=== PATIENT | female | born 1970 | race Two or more races ===

== ENCOUNTER 2024-06-25 08:00 | Outpatient (RCR) | payer MEDICAID, SELFPAY ==
--- NOTE | 2024-06-03 12:09 | PT.ODAYNRPT ---
PT Outpatient Daily Note OP Daily Note Outpatient Physical Therapy Treatment Date: 06/03/24 Visit Reasons: low back pain Subjective: Same as evaluation Objective: See F/S for therex MT: FELISHA L/S x5' with flexbar Assessment: Low/moderate tissue irritability with prone extension Plan: Continue per POC Length of Time (minutes) of Treatment: 30 Minutes Procedure Charges Therapeutic Exercise 30 minutes: Yes
--- NOTE | 2024-06-11 08:39 | PT.ODAYNRPT ---
PT Outpatient Daily Note OP Daily Note Outpatient Physical Therapy Treatment Date: 06/11/24 Visit Reasons: low back pain Subjective: A little less LBP since last visit Objective: See F/S for therex MT: FELISHA L/S x5' with flexbar Assessment: Low/moderate tissue irritability with prone extension Plan: Continue per POC Length of Time (minutes) of Treatment: 30 Minutes Procedure Charges Therapeutic Exercise 30 minutes: Yes
--- NOTE | 2024-06-17 15:06 | PT.ODAYNRPT ---
PT Outpatient Daily Note OP Daily Note Outpatient Physical Therapy Treatment Date: 06/17/24 Visit Reasons: low back pain Subjective: Less LBP since last visit Objective: See F/S for therex MT: STM L/S x5' with flexbar Mechanical traction L/S x7' at 40 lbs Assessment: Low/moderate tissue irritability with prone extension Plan: Continue per POC Length of Time (minutes) of Treatment: 30 Minutes Procedure Charges Therapeutic Exercise 30 minutes: Yes
--- NOTE | 2024-06-25 08:26 | PT.ODAYNRPT ---
PT Outpatient Daily Note OP Daily Note Outpatient Physical Therapy Treatment Date: 06/25/24 Visit Reasons: low back pain Subjective: Pt reports noticing progress with low back symptoms. Objective: Please see flow sheet for ther ex list. Assessment: Applied mechanical traction to l/s, pt reports decrease in LBP post traction. Plan: Continue with pOC. Length of Time (minutes) of Treatment: 30 Minutes Procedure Charges Therapeutic Exercise 30 minutes: Yes
== END 2024-06-29 23:59 | disposition home or self-care (01) ==
LOC: CPTX 08:00
PROVIDERS: PCP Family Medicine; Referring Provider Family Medicine; Visit Provider Family Medicine
DX: M51.370 Other intervertebral disc degeneration, lumbosacral region with discogenic back pain only (principal)
CPT/HCPCS: 97110

== ENCOUNTER 2024-07-24 13:21 | Emergency (ER) | payer MEDICAID, SELFPAY ==
[2024-07-24 13:37] VITALS: BP 149/84; PULSE 102; RESP 18; TEMP 37; O2SAT 97
--- NOTE | 2024-07-24 13:58 | EDNOTE_ITS ---
<Statement entered by Lisette Syed MD - 07/31/24 17:54> As co-signing physician, I was present and available for consult prn. I concur with the plan and care as documented by the midlevel provider. ED Back Injury Pain RME/HPI General Chief Complaint: Back Pain/Injury Stated Complaint: BACK PAIN Time Seen by Provider: 07/24/24 13:22 Arrival date/time: 07/24/24 13:21 53-year-old female presents emergency department complaints of acute on chronic back pain ongoing for months patient reports that MRI done in [place] 2 months ago. There are no other associated symptoms or aggravating factors no other modifying factors, patient denies taking medication before coming to ER today Limitations: no limitations Related Data Previous Rx's ?Medication ?Instructions ?Recorded hydrocodone 5 mg-acetaminophen 325 1 tab PO BID PRN pain #10 tabs 07/24/24 mg tablet Allergies Allergy/AdvReac Type Severity Reaction Status Date / Time No Known Allergies Allergy Verified 04/24/24 10:40 Review of Systems Review of Systems Systems Reviewed: All systems reviewed, normal except as documented Constitutional Constitutional: Reports system reviewed and no additional complaints, except as documented, Denies fever(s) and Denies headache(s) Eyes Eyes: Reports system reviewed and no additional complaints, except as documented and Denies blurry vision ENT Ears, Nose, Mouth, and Throat: Reports system reviewed and no additional complaints, except as documented, Denies headache(s), Denies nasal congestion, Denies nasal discharge and Denies neck pain Cardiovascular Cardiovascular: Reports system reviewed and no additional complaints, except as documented, Denies chest pain and Denies dyspnea Respiratory Respiratory: Reports system reviewed and no additional complaints, except as documented, Denies chest congestion, Denies cough and Denies dyspnea Gastrointestinal Gastrointestinal: Reports system reviewed and no additional complaints, except as documented and Denies abdominal pain Musculoskeletal Musculoskeletal: Reports system reviewed and no additional complaints, except as documented, Reports back pain, Denies neck pain, Denies numbness, Reports stiffness and Denies tingling Integumentary/Breasts Skin/Breast: Reports system reviewed and no additional complaints, except as documented and Denies rash Neurologic Neurologic: Reports system reviewed and no additional complaints, except as documented, Reports as per HPI, Denies headache(s), Denies numbness and Denies tingling Past Medical History Past Medical History NEUROLOGIC: Negative Neurological Disorders, Seizures or Traumatic Brain Injury CARDIAC: Negative Cardiac Disorders or Congestive Heart Failure RESPIRATORY: Negative Chronic Obstructive Pulmonary Disease (COPD) GASTROINTESTINAL: Positive Gastrointestinal Disorders and Gastroesophageal Reflux Disease; Negative Hepatitis GENITOURINARY: Negative Genitourinary Disorders or Renal Disease REPRODUCTIVE: Positive Previous Pregnancies (3) MUSCULOSKELETAL: Negative Musculoskeletal Disorders ENDOCRINE: Negative Endocrine Disorders, Diabetes Mellitus Type 1, Diabetes Mellitus Type 2 or Hyperthyroidism HEMATOLOGIC: Negative Blood Disorders or Anemia OTHER HISTORY: Positive Chicken Pox; Negative Autoimmune Disease, Shingles, Blood Transfusions, Blood Transfusion Reaction, Anesthesia Reactions, Human Immunodeficiency Virus (HIV), Measles, Mumps, Rubella (British Measles), Pertussis or Cancer Surgical History SURGICAL: Positive Tubal Ligation and Section (3); Negative Cardiac Surgery, Endocrine Surgery, Ear Surgery, Nephrectomy, Joint Replacement or Neurologic Surgery Social History SMOKING STATUS: Never smoker ED Exam General Limitations: Present no limitations General appearance: Present alert and in no apparent distress Head Head exam: Present atraumatic, normocephalic and normal inspection Eye Eye exam: Present normal appearance, PERRL and EOMI; Absent conjunctival injection ENT ENT exam: Present normal exam, normal oropharynx and mucous membranes moist Neck Neck exam: Present normal inspection, full ROM and trachea midline Chest Chest inspection: Present normal inspection and symmetric chest wall rise Respiratory Respiratory exam: Present normal lung sounds bilaterally; Absent respiratory distress, wheezes, stridor or accessory muscle use Cardiovascular Cardiovascular exam: Present regular rate, normal rhythm and normal heart sounds Abdominal Exam Abdominal exam: Present soft and normal bowel sounds; Absent distention, tenderness, guarding, rebound or rigidity Extremities Exam Extremities exam: Present normal inspection and full ROM Back Exam Back exam: Present normal inspection, full ROM, tenderness, muscle spasm and paraspinal tenderness; Absent CVA tenderness (R), CVA tenderness (L) or vertebral tenderness Neurological Exam Neurological exam: Present alert, oriented X3 and CN II-XII intact Psychiatric Psychiatric exam: Present normal affect and normal mood Skin Skin exam: Present warm, dry, intact and normal color Course Quality Measures none Orders Category Date Time Status Ketorolac Inj [Toradol Inj] Med 07/24/24 13:57 Discontinued 30 mg IM X1 ONE Vital Signs Vital signs: Vital Signs Temperature 98.6 F 07/24/24 13:37 Pulse Rate 102 H 07/24/24 13:37 Respiratory Rate 18 07/24/24 13:37 Blood Pressure 149/84 H 07/24/24 13:37 Pulse Oximetry (%) 97 07/24/24 13:37 Oxygen Delivery Method Room Air 07/24/24 13:37 O2 saturation 97% room air within normal limits Back Pain / Injury MDM Narrative MDM Narrative:: 53-year-old female presents emergency department complaints of acute on chronic back pain ongoing for months patient reports that MRI done in [place] 2 months ago. There are no other associated symptoms or aggravating factors no other modifying factors, patient denies taking medication before coming to ER today On exam patient does not appear ill or toxic patient walks with steady gait and has no abnormal neurological findings patient reports no saddle anesthesia no loss of bowel or bladder Patient reports no fever nausea vomiting or weight loss On exam patient well-appearing does not appear ill or toxic patient is nervous about her MRI results Explained to patient she needs to bring copy of her MRI to her PCP for further evaluation and she may need an MRI repeated [place] Patient discharged home in no distress to follow-up with primary care doctor in the next 24 to 48 hours and for any worsening symptoms to return to the ER immediately Patient data External records reviewed:: [facility] previous records Clinical information provided by:: patient Social determinants that could affect healthcare access:: none Patient has the following chronic illnesses:: Back pain How is presenting disease/condition affected by chronic disease/condition?: caused by Evaluation data The following diagnostics were reviewed and interpreted by me:: other (specify) (N/A) Lab and/or radiology exams considered but not ordered:: Considered and Not ordered Interpretation Summary: N/A Medications / Prescriptions Medications or Prescriptions considered but not ordered:: Given Medication administrations:: Medication Administration History Discontinued Medications Ketorolac Tromethamine (Ketorolac Inj 30 Mg/Ml Vial) 30 mg IM X1 ONE Stop: 07/24/24 13:58 Last Admin: 07/24/24 14:01 Dose: 30 mg Documented By: Given Consultations Consultation(s) initiated? (list below): No Diagnosis Most likely diagnosis given after review of the tests above:: Back pain acute on chronic abnormal MRI Admission Indicated Admission indicated?: not indicated Admission Request Was there a request for admission?: No Disposition Plan Disposition Plan: Discharge Discharge Attestation Discharge Attestation: The patient and all family members were given an opportunity to ask questions and understood the discharge instructions. Discharge instructions specifically effects, indications for sooner follow up or return to the emergency department, and the expected course of current diagnosis. Patient condition: Stable Discharge Plan Plan Patient Disposition: HOME (Self Care) Disposition Comment: stable Prescriptions/Referrals Prescriptions/Med Rec: New hydrocodone-acetaminophen 5-325 mg tablet 1 tab PO BID MDD 10 PRN (Reason: pain) Qty: 10 0RF Problem List Clinical Impression: Acute on chronic back pain, Abnormal MRI Patient/Caregiver Discharge Instructions Additional Instructions: Please bring copy of your MRI report to your primary care doctor for further evaluation and referral to specialist for worsening symptoms or concerns return to the ER immediately Print Language: Lithuanian Stand Alone Forms: Cami Award Info., Patient Portal Info Letter PA/SHOW HOST Supervising Physician PA/SHOW HOST Supervising Physician: Dr. SYED
[2024-07-24] MEDS: KETOROLAC INJ 30 MG/ML VIAL IM (14:01)
== END 2024-07-24 14:10 | disposition home or self-care (01) ==
LOC: SERX 14:10
PROVIDERS: Emergency Provider Emergency Medicine; PCP Family Medicine
DX: M54.9 Dorsalgia, unspecified (principal); G89.29 Other chronic pain; R93.0 Abnormal findings on diagnostic imaging of skull and head, not elsewhere classified
CPT/HCPCS: 96372; 99283; J1885

== ENCOUNTER → 2024-08-26 | Outpatient (CLI) | payer MEDICAID, SELFPAY ==
--- NOTE | 2024-08-26 09:30 | XR_ITS ---
Examination: Breast ultrasound complete, bilateral Date and time of exam: August 26, 2024 0956 hours INDICATIONS: Patient states lump left breast one year Technique: Real-time grayscale ultrasonographic imaging bilateral breasts, including all 4 quadrants as well as nipple retroareolar and axillary regions. Findings: Sonographic images right breast No cystic or solid mass Sonographic images left breast 2:00 oval mass spiculated margins 3.6 x 2.7 x 3.2 cm IMPRESSION: BI-RADS Category 4: Suspicious for malignancy Suspicious mass 2:00 position left breast Biopsy is needed to exclude breast carcinoma This mass is amenable to ultrasound-guided breast biopsy for diagnosis Recommend diagnostic mammography follow-up
--- NOTE | 2024-08-26 10:30 | XR_ITS ---
Examination: Diagnostic digital mammography, bilateral Computer aided detection 3-D breast Tomosynthesis, bilateral Date and time of exam: August 26, 2024 1024 hours INDICATIONS: Patient states left nipple lump with retraction one year Technique: Nonmagnified MLO, CC views of the breasts to been obtained, reconstructed from 3-D Tomosynthesis images. R2 computer aided detection program utilized for evaluation of suspicious masses and/or abnormal calcifications. 3-D Tomosynthesis images obtained. Findings: Scattered areas of fibroglandular density 5 cm spiculated mass retroareolar region left breast with nipple retraction, confirmed on the spot compression views Impression: BI-RADS Category 4: Suspicious for malignancy 5 cm spiculated mass retroareolar region left breast with nipple retraction Recommend ultrasound-guided biopsy of this mass to confirm breast carcinoma.
== END | disposition home or self-care (01) ==
PROVIDERS: PCP Family Medicine; Referring Provider Registered Nurse Pediatrics; Visit Provider Registered Nurse Pediatrics
DX: R92.343 Mammographic extreme density, bilateral breasts (principal); N63.42 Unspecified lump in left breast, subareolar; N63.21 Unspecified lump in the left breast, upper outer quadrant
CPT/HCPCS: 76641; 77062; 77066; G0279

== ENCOUNTER → 2024-09-11 | Outpatient (CLI) | payer MEDICAID, SELFPAY ==
--- NOTE | 2024-09-11 09:30 | XR_ITS ---
Examination: MRI thoracic spine without contrast. Date and time of exam: September 11, 2024 at 10:12 AM INDICATIONS: Diagnosis multiple myeloma, patient bent over and pelvic pain back March 2024 persistent back pain Technique: Multiple sagittal and axial images of the thoracic spine have been obtained. T1 weighted localizer, sagittal T2 weighted images, TR 30-50, TE 148, T1 weighted sagittal images, TR 650, TE 14, T2-weighted transverse images, TR 6770, TE 142 Findings: Severe osteopenia Moderate compression fractures T10, T11 Retropulsion of the T10 vertebral body at least 6 mm indenting the ventral margin thoracic cord Moderate compression T5 Impression: Severe osteopenia Moderate pathologic appearing compression fractures T10-T11 Significant spinal stenosis detailed level with retropulsion of this compressed vertebral body impinging upon the thoracic cord Recommend MRI thoracic cord with intravenous contrast follow-up
== END | disposition home or self-care (01) ==
LOC: SMRI 09:23
PROVIDERS: PCP Family Medicine; Referring Provider Family Medicine; Visit Provider Family Medicine
DX: M85.88 Other specified disorders of bone density and structure, other site (principal); M48.54XA Collapsed vertebra, not elsewhere classified, thoracic region, initial encounter for fracture; M48.04 Spinal stenosis, thoracic region; G95.20 Unspecified cord compression
CPT/HCPCS: 72146

== ENCOUNTER → 2024-09-12 | Outpatient (CLI) | payer MEDICAID, SELFPAY ==
--- NOTE | 2024-09-12 14:00 | XR_ITS ---
Examination: MRI cervical spine without intravenous contrast Date and time of exam: September 12, 2024 1353 hours INDICATIONS: Back pain, MRI 2 months ago abnormality in the lower back Technique: Multiple axial and sagittal sections of the cervical spine to been obtained. T2 weighted sagittal sections, TR 3, 270, TE 117 T1-weighted sagittal sections, TR 500, TE 11 T1-weighted axial sections, TR 607, TE 12, axial sections TR 18, TE 27 and T2 weighted transverse sections, TR 3920, TE 122. Findings: Adequate alignment cervical vertebral bodies No cervical fracture Heterogeneous abnormal signal in the odontoid at its junction with C2 as well as anterior C3 C5 C6 and C7 as well as T1 Mild disc narrowing C4-C5 No localized enlargement cervical cord C2-C3 no disc protrusion C3-C4 moderate right neural foraminal stenosis C4-C5 no disc protrusion C5-C6 no disc protrusion C6-C7 no disc protrusion C7-T1 no disc protrusion IMPRESSION: Abnormal signal in multiple cervical vertebral bodies suspicious for round cell tumor or osseous metastatic disease This patient should return for MRI cervical spine images post intravenous contrast
--- NOTE | 2024-09-12 14:30 | XR_ITS ---
Examination: MRI lumbar spine without contrast Date and time of exam: September 12, 2024 1420 hours INDICATIONS: Abnormal MRI lumbar spine outside examination 2 months ago osteolytic lesions lower back pain 5 months old Technique: Multiple MRI axial and sagittal sections lumbar spine. Sagittal T2-weighted images, TR 3500, TE 118 T1 weighted transverse sections, TR 688 T8.5, T2-weighted sagittal sections T1 weighted sagittal sections TR 621, TE 30 T2 axial sections, TR 4, 190, TE 84. 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
== END | disposition home or self-care (01) ==
PROVIDERS: PCP Family Medicine; Referring Provider Family Medicine; Visit Provider Family Medicine
DX: R93.7 Abnormal findings on diagnostic imaging of other parts of musculoskeletal system (principal); M89.8X9 Other specified disorders of bone, unspecified site
CPT/HCPCS: 72141; 72148

== ENCOUNTER → 2024-10-28 | Outpatient (CLI) | payer MEDICAID, SELFPAY ==
[2024-10-28 08:14] LABS: Basophils % (Auto) 1 % (0-2.5); Eosinophils # (Auto) 0.2 Thou/mm3 (0.0-0.5); Eosinophils % (Auto) 2 % (0-10); Hematocrit 35.3 % (36.0-46.0); Hemoglobin 11.1 g/dL (12.0-16.0); Immature Granulocytes % (Auto) 3 % (0-0); Immature Granulocytes Auto 0.18 Thou/mm3 (0.00-0.00); Lymphocytes # (Auto) 2.4 Thou/mm3 (1.0-4.8); Lymphocytes % (Auto) 36 % (10-50); Mean Corpuscular HGB Conc 31.4 g/dl (31.0-37.0); Mean Corpuscular Volume 83 fL (80-100); Monocytes # (Auto) 0.4 Thou/mm3 (0.0-0.8); Monocytes % (Auto) 6 % (0-12); Neutrophils # (Auto) 3.5 Thou/mm3 (1.8-7.7); Neutrophils % (Auto) 52 % (37-80); Nucleated Red Blood Cell % 0 /100 WBC (0); Platelet Count 264 Thou/mm3 (140-440); RDW Standard Deviation 52.7 fL (36.4-46.3); Red Blood Count 4.27 Miln/mm3 (4.00-5.20); White Blood Count 6.8 Thou/mm3 (3.6-11.0)
[2024-10-28 08:50] LABS: Partial Thromboplastin Time 30.5 Seconds (22.0-36.0); Prothrombin Time 11.3 Seconds (9.0-12.2)
--- NOTE | 2024-10-28 09:30 | XR_ITS ---
Examinations: Ultrasound-guided percutaneous breast biopsy, left breast 2:00 nodule Left breast sonography limited INDICATIONS: BI-RADS 4 suspicious mass 2:00 position left breast on left breast sonogram August 26, 2024. Exam date and time: October 28, 2024 0944 hours. Informed consent provided. Technique: A timeout was completed verifying correct patient, procedure, site, positioning, and special equipment if applicable Informed consent provided. The patient was placed in a supine position for the breast biopsy. Sonographic images of the breast were performed for localization of the suspicious nodule The patient's breast was prepped and draped in sterile fashion. Maximum sterile barrier technique, hand hygiene, ultrasound sterile technique 1% lidocaine was used to anesthetize the skin and breast adjacent to the suspicious nodule. Utilizing ultrasonographic guidance, 8 core biopsies were obtained of the suspicious nodule utilizing an 18-gauge BioPince needle. The specimens appears satisfactory. US guided breast biopsy marker placement. Estimated blood loss 3 cc. The patient tolerated the procedure well and there were no complications. Impression: Successful ultrasound-guided percutaneous breast biopsy, left breast 2:00 nodule. Ultrasound guided breast biopsy marker placement.
== END | disposition home or self-care (01) ==
PROVIDERS: Radiology Diagnostic Radiology; PCP Family Medicine; Referring Provider Family Medicine; Visit Provider Family Medicine
DX: C50.412 Malignant neoplasm of upper-outer quadrant of left female breast (principal); Z01.812 Encounter for preprocedural laboratory examination; Z17.0 Estrogen receptor positive status [ER+]; Z17.22 Progesterone receptor negative status
CPT/HCPCS: 19083; 36415; 85025; 85610; 85730; A4648

== ENCOUNTER 2024-12-12 08:16 | Outpatient (RCR) | payer MEDICAID, SELFPAY ==
--- NOTE | 2024-12-12 10:05 | CTCCONSULT_ITS ---
[facility] [address] [place], [place] [address] Consultation Note Date: 12/12/2024 MR#: [id number] Name: GALO DAVIS : 1970 Dx: C79.51 Secondary malignant neoplasm of bone Attending physician. Liam Silverman PA-C Referring physician. David Jolley MD Reason for consultation. Patient with breast CA with widespread bone mets referred for palliative radiation therapy. History of Present Illness: Patient is a 54-year-old lady initially followed in [place] for complaints of back pain recently being followed by Dr. David Jolley after having had biopsy positive for breast CA with apparent widespread bony involvement. Biopsy of left breast 10/28/2024 1.2 cm invasive lobular carcinoma largest focus. ER +3+ CO negative HER2 shaun 0. PET scan 10/09/2024 revealed bilateral axillary involvement more hypermetabolic on the right with widespread bony mets. MRI 09/12/2024 without contrast showed diffuse marrow signal all visualized vertebral bodies maximum L5 area. Patient referred for radiation oncology consultation. Patient states that she has had intermittent pain along all her spinal column but not too bad at this time and is not taking any strong pain medications. Past Medical History: Denies other than above Meds. Calcium vitamin D olanzapine Celebrex Allergies none to meds Social History: Patient originally from [place] first 18 3 pregnancies 3 births first menses age 12 Family history. Denies family history of cancer Review of Systems: Has mild intermittent pain throughout her skeleton not needing opioids. Denies fever chills weight loss Physical Exam: General: Well-appearing lady no acute distress HEENT: Atraumatic normocephalic extraocular is intact no oral lesions no cervical or supraclavicular adenopathy. CV: Clear to auscultation breast not examined today ABD: Soft no organomegaly or tenderness EXT: No signs of clubbing or edema Assessment:1. Patient with stage IV T2 N1 M1 ER/CO positive HER2/shaun 0 Left breast biopsy positive for CA. 2. Radiographically patient appears to have widespread bony involvement along with bilateral axillary involvement. 3. Dr. Jolley has initiated neoadjuvant chemotherapy. 4. Due to minimal complaints of pain in recent weeks, I believe MRI with contrast for better visualization of the vertebra and its relation to the spinal cord would be helpful before starting radiation. I will order this with contrast and see the patient again in 2 months. Thank you very much for al lowing me to evaluate this patient Cc: David Jolley MD Electronically signed by: Robson Sarabia MD, DABR 12/12/2024 10:02 AM
== END 2024-12-28 23:59 | disposition home or self-care (01) ==
LOC: SCTC 08:16
PROVIDERS: PCP Family Medicine; Referring Provider Internal Medicine Hematology & Oncology; Visit Provider Radiology Therapeutic Radiology
DX: C50.412 Malignant neoplasm of upper-outer quadrant of left female breast (principal); C79.51 Secondary malignant neoplasm of bone; Z17.0 Estrogen receptor positive status [ER+]; Z17.22 Progesterone receptor negative status; Z17.32 Human epidermal growth factor receptor 2 negative status
CPT/HCPCS: 99213; G0463

== ENCOUNTER → 2024-12-13 | Outpatient (CLI) | payer MEDICAID, SELFPAY ==
--- NOTE | 2024-12-13 13:30 | ECHO_ITS ---
Transthoracic Echo Report Ht (in): 62 Wt (lb): 156 Exam Location: Echo Lab Status: Preadmit Hide Shaker: FLORIDALMA Andrew^^^^ Indications: Procedure Performed: BP: / HR: 82 Technical Quality: Fair MEASUREMENTS (Male / Female) Normal Values 2D ECHO LV Diastolic Diameter PLAX 4.6 cm 4.2 - 5.9 / 3.9 - 5.3 cm LV Systolic Diameter PLAX 2.9 cm IVS Diastolic Thickness 0.8 cm 0.6 - 1.0 / 0.6 - 0.9 cm LVPW Diastolic Thickness 1.0 cm 0.6 - 1.0 / 0.6 - 0.9 cm LV Relative Wall Thickness 0.4 LVOT Diameter 1.8 cm Aortic Root Diameter 2.7 cm LA Systolic Diameter LX 4.1 cm 3.0 - 4.0 / 2.7 - 3.8 cm LA Volume Index 45.4 cm?/m? 16 - 28 cm?/m? Ascending Aorta Diameter 2.6 cm DOPPLER AV Peak Velocity 162.0 cm/s AV Peak Gradient 10.5 mmHg AV Mean Gradient 6.0 mmHg AV Velocity Time Integral 33.0 cm LVOT Peak Velocity 125.0 cm/s LVOT Peak Gradient 6.3 mmHg LVOT Velocity Time Integral 23.2 cm LVOT Cardiac Index 2717.5 cm?/min?m? AV Area Cont Eq vti 1.8 cm? AV Area Cont Eq pk 2.0 cm? MV Area PHT 4.2 cm? Mitral E Point Velocity 91.1 cm/s Mitral A Point Velocity 105.0 cm/s Mitral E to A Ratio 0.9 LV E' Lateral Velocity 10.3 cm/s Mitral E to LV E' Lateral Ratio 8.8 LV E' Septal Velocity 8.1 cm/s Mitral E to LV E' Septal Ratio 11.3 TR Peak Velocity 321.5 cm/s TR Peak Gradient 41.3 mmHg PV Peak Velocity 88.9 cm/s PV Peak Gradient 3.2 mmHg RVOT Peak Velocity 53.9 cm/s FINDINGS Left Ventricle Normal left ventricular size, wall thickness, systolic function with no obvious regional wall motion abnormalities. There is grade I diastolic dysfunction of the left ventricle (impaired relaxation pattern). The left ventricular ejection fraction is normal, estimated at 60-65%. Right Ventricle The right ventricle is normal in size and systolic function. The estimated right ventricular systolic pressure, 42 mmHg. Left Atrium Mildly increased left atrial volume 45.4 mL/m?. Right Atrium The right atrium is normal by two-dimensional imaging, color flow and Doppler imaging with no structural abnormalities, no thrombus formation present. Atrial Septum The interatrial septum appears normal with no evidence of a shunt. Aorta The aorta is normal by two-dimensional, color flow and Doppler interrogation. Mitral Valve Mild mitral regurgitation. Mild mitral annular calcification. Aortic Valve Aortic valve sclerosis. Diffuse calcification of the aortic valve. Tricuspid Valve There is mild to moderate tricuspid valve regurgitation. Pulmonic Valve Trivial pulmonic valve regurgitation. Vessels The pulmonary artery appears normal. The inferior vena cava pulmonary and hepatic veins appear normal. Pericardium The pericardium is normal by two-dimensional imaging. There is no significant pericardial effusion. CONCLUSIONS Indication: Malignant neoplasm of upper-outer quadrant of left female breast Normal LV size and function with an estimated EF of 60 to 65%. Stage I diastolic dysfunction. Normal RV size and function with estimated RVSP of 42 mmHg. Mild aortic valve sclerosis without stenosis. Mild MAC, mild MR. No pericardial effusion. Jonh Bernal (Electronically Signed) Final Date: 13 Dec 2024 17:38
== END | disposition home or self-care (01) ==
PROVIDERS: PCP Family Medicine; Referring Provider Internal Medicine Hematology & Oncology; Visit Provider Internal Medicine Hematology & Oncology
DX: I08.3 Combined rheumatic disorders of mitral, aortic and tricuspid valves (principal); C50.412 Malignant neoplasm of upper-outer quadrant of left female breast
CPT/HCPCS: 93306

== ENCOUNTER → 2025-01-14 | Outpatient (CLI) | payer MEDICAID, SELFPAY ==
--- NOTE | 2025-01-14 15:00 | XR_ITS ---
Examination: MRI bilateral breasts with without contrast Date and time: January 14, 2025, 1524 hours INDICATIONS: Diagnosis malignant neoplasm upper outer quadrant left female breast October 2024, receiving chemotherapy, postlumpectomy, history biopsy ultrasound-guided BI-RADS 4 suspicious mass 2:00 position left breast October 28, 2024 TECHNIQUE AND FINDINGS: Multiple bilateral breast MRI images pre and post intravenous administration 13 cc gadolinium Post lumpectomy left breast with extensive architectural distortion in the 2:00 position left breast extending retroareolar, AP dimension of this architectural distortion This area of architectural distortion shows rapid wash-in on the postcontrast images but not rapid washout No chest wall lesion No axillary lymphadenopathy No right breast mass depicted IMPRESSION: Large area of architectural distortion 2:00 position left breast extending to the retroareolar region as above 5.5 cm mediolateral dimension 2.2 cm BI-RADS Category 3: Probably benign findings Recommend follow-up bilateral breast sonography and diagnostic mammography January 2025
== END | disposition home or self-care (01) ==
LOC: SMRI 14:32
PROVIDERS: PCP Family Medicine; Referring Provider Internal Medicine Hematology & Oncology; Visit Provider Internal Medicine Hematology & Oncology
DX: N64.89 Other specified disorders of breast (principal); C50.412 Malignant neoplasm of upper-outer quadrant of left female breast; Z90.12 Acquired absence of left breast and nipple
CPT/HCPCS: 77049; A9579; C8908

== ENCOUNTER → 2025-02-01 | Outpatient (CLI) | payer MEDICAID, SELFPAY ==
--- NOTE | 2025-02-01 12:30 | XR_ITS ---
Examination: MRI thoracic spine with intravenous contrast TECHNIQUE: Multiple MR axial sagittal images thoracic spine post intravenous administration 40 cc gadolinium Date and time: February 01, 2025, 1320 hours Comparison September 11, 2024 INDICATIONS: Diagnosis bone cancer September 2023, diagnosis multiple myeloma Moderate compression fractures T10, T11 with retropulsion T10 6 mm on MR study September 11, 2024 FINDINGS: Abnormal signal throughout all visualized thoracic vertebral bodies Stable chronic compression fractures T10, T11 Retropulsion compressed T10 vertebral body 6 mm right paracentral contiguous with the anterior right margin of the thoracic cord Fracture lines also identified involving superior endplate T12 and vertebral bodies T7 and T5 with adequate alignment of these vertebral bodies IMPRESSION: Widespread involvement by multiple myeloma Stable pathologic compression fractures T10, T11 Stable 6 mm retropulsion T10 vertebral body impinging upon the anterior right margin of the thoracic cord Additional fracture lines noted involving superior endplate of T12 and vertebral bodies T7 and T5 Follow-up CT scan thoracic spine might be helpful in assessing stability of the thoracic fractures
== END | disposition home or self-care (01) ==
LOC: SMRI 11:43
PROVIDERS: Referring Provider Radiology Therapeutic Radiology; Visit Provider Radiology Therapeutic Radiology
DX: M84.48XA Pathological fracture, other site, initial encounter for fracture (principal); C90.00 Multiple myeloma not having achieved remission; C79.51 Secondary malignant neoplasm of bone
CPT/HCPCS: 72147; A9579

== ENCOUNTER → 2025-02-03 | Outpatient (CLI) | payer MEDICAID, SELFPAY ==
--- NOTE | 2025-02-03 08:00 | XR_ITS ---
Examination: MRI cervical spine with intravenous contrast TECHNIQUE: Multiple axial sagittal MR images cervical spine post intravenous administration 14 cc gadolinium Date and time: February 03, 2025 0844 hours Comparison noncontrast MRI cervical spine September 12, 2024 INDICATIONS: Diagnosis malignant neoplasm upper outer quadrant left female breast, neck pain several years FINDINGS: Diffuse abnormal enhancement involving cervical vertebral bodies, most prominent at C2 and C7 Adequate alignment vertebral bodies. No pathologic fracture. No abnormal enhancing epidural tumor impinging upon the cervical cord IMPRESSION: Widespread osseous metastatic disease No cervical cord compression
--- NOTE | 2025-02-03 08:30 | XR_ITS ---
Examination: MRI lumbar spine with intravenous contrast TECHNIQUE: Sagittal and axial MR lumbar spine images post intravenous administration 14 cc gadolinium INDICATIONS: Diagnosis malignant neoplasm upper outer quadrant left female breast, secondary malignant neoplasm of the bone, low back pain several years Date and time: February 03, 2025 0844 hours FINDINGS: All visualized bones demonstrate abnormal enhancement Pathologic compression L1, T12, T11 Adequate alignment lumbar vertebral bodies No abnormal epidural tumor impinging upon the cauda equina Please see the MRI thoracic spine report IMPRESSION: Widespread osseous metastatic disease Pathologic fractures L1, T12, T11, consider CT scan lumbar spine follow-up to include T12 and T11
== END | disposition home or self-care (01) ==
LOC: SMRI 07:21
PROVIDERS: PCP Family Medicine; Referring Provider Radiology Therapeutic Radiology; Visit Provider Radiology Therapeutic Radiology
DX: M84.48XA Pathological fracture, other site, initial encounter for fracture (principal); C79.51 Secondary malignant neoplasm of bone; C79.9 Secondary malignant neoplasm of unspecified site
CPT/HCPCS: 72142; 72149; A9579

== ENCOUNTER 2025-02-26 12:56 | Outpatient (RCR) | payer MEDICAID, SELFPAY ==
--- NOTE | 2025-02-11 15:50 | CTCTXPLNST_ITS ---
Radiation Oncology Treatment Planning Sheet Name: GALO DAVIS MR#: [id number] : 1970 Dx: C79.51 Secondary malignant neoplasm of bone Date of Service: 02/11/2025 Account #: ?? Pt Treatment Intent: curative palliative other: Stage: Procedure CPT # Ordered Spec. Procedure 85758 1 Phillips Complex (set-up) 67957 T8-L3(treating T11-L1) 1 Phillips Simple 17548 IMRT Plan 15624 1 MLC Devices VMAT 67770 3 Phillips 3 D 91405 TRTMT dev Complex 92186 Vac-Geovany 1` TRTMT dev simple 07401 Basic Jeremy 21756 6 Special Dosimetry 98827 Spec Physics 82370 Port Films 01280 SRS Cranial/1FX 54531 SBR 5 FX or Less /ex: 5 = 5 fx 44008 IMRT Simple 21506 3000 10 IMRT Complex 63580 IGRT 96899 8 Rad del com 6-10 38290 Rad del com 11 03426 Cont Med Physics 91193 2 Treatment Planning 95102 1 Rad del com 20 mev 69772 Rad del inter 6 96197 Rad del inter 06-18 36030 Rad del simple 6-10 35369 Rad del simple 06-18 52498 Special Port Plan 50575 TRTMT dev inter 82191 Isodose Complex 27569 Isodose simple 56599 Resp Motion Mgmt Simulation 75942 Placement of Fiducial Markers 71163 Electronically Signed By: Robson Sarabia MD, CHELIR 02/11/2025 3:47 PM
--- NOTE | 2025-02-11 15:51 | CTCTXPLN_ITS ---
[facility] [place] [address] [place], [place] [address] Physician Clinical Treatment Planning Note Date of Service: 02/11/2025 Name: GALO DAVIS D.O.B.: 1970 The patient has agreed to proceed with Radiation therapy. Tests and supporting medical records were interpreted to assist in defining the tumor location and extent of disease. Further imaging will be necessary to contour and delineate the volume to which the XRT will be provided. A. Treatment Intent: Palliative B. Modality: 6 MV C. Requested Technique: VMAT D. Treatment Site: Thoracolumbar spine E. Critical structures to be contoured on plan: F. In order to accomplish this plan, I am ordering/Prescribing the followin. Simulations (s) will be performed to accomplish a reproducible treatment position, to determine optimal treatment portals/beam arrangements, to design beam modifying devices and verify treatment portals on patient prior to the commencement of Radiation Therapy. TL spine 2. Devices; for immobilization and beam shaping: Vac-Geovany 3. CT Guidance for placement of XRT he Scan area: 4. Portal images Frequency: 5. Invivo transit dose measurement once per week on all VMAT patients. 6. Special Physics Consult Requested for: 7. Other requests: Special procedure someone getting chemo radiation G. Dose Objectives: Palliative Electronically signed by: Robson Sarabia M.D. 02/11/2025 3:48 PM
--- NOTE | 2025-02-11 15:54 | CTCFLWUP_ITS ---
[facility] [address] [place], [place] [address] FOLLOW-UP NOTE Date: 02/11/2025 MR#: [id number] Name: GALO DAVIS : 1970 Dx: C79.51 Secondary malignant neoplasm of bone Patient receiving chemo for stage IV breast CA just had MRI completed 02/02 and 02/03/2025. This showed predictably widespread bone mets but in lower thoracic and upper lumbar area there was pathological fracture. Discussed with patient about radiation therapy to this area. Pain is not severe although she feels some discomfort if she bends Agrees to have radiation therapy to prevent further of the injury to the pathological fracture and the potential of involving the spinal cord. 3000 cGy in 10 fractions via VMAT. Consent signed side effects discussed. Electronically signed by: Robson Sarabia M.D. 02/11/2025 3:52 PM
== END 2025-02-27 23:59 | disposition home or self-care (01) ==
LOC: SCTC 12:56
PROVIDERS: PCP Family Medicine; Referring Provider Family Medicine; Visit Provider Radiology Therapeutic Radiology
DX: C79.51 Secondary malignant neoplasm of bone (principal); G89.3 Neoplasm related pain (acute) (chronic); C50.412 Malignant neoplasm of upper-outer quadrant of left female breast; Z17.0 Estrogen receptor positive status [ER+]; Z17.22 Progesterone receptor negative status; Z17.32 Human epidermal growth factor receptor 2 negative status
CPT/HCPCS: 77014; 77290; 77334; 77470; 99213; G0463

== ENCOUNTER 2025-03-03 10:41 | Outpatient (RCR) | payer MEDICAID, SELFPAY | END 2025-03-30 23:59 | disposition home or self-care (01) | LOC: SCTC 10:41 | PROVIDERS: PCP Family Medicine; Referring Provider Family Medicine; Visit Provider Radiology Therapeutic Radiology | DX: C79.51 Secondary malignant neoplasm of bone (principal) | CPT/HCPCS: 77300; 77301; 77338; 99424; 99425 ==

== ENCOUNTER 2025-04-25 10:36 | Outpatient (RCR) | payer MEDICAID, SELFPAY ==
--- NOTE | 2025-04-09 10:18 | CTCFLWUP_ITS ---
[facility] [address] [place], [place] [address] FOLLOW-UP NOTE Date: 04/09/2025 MR#: [id number] Name: GALO DAVIS : 1970 Dx: C79.51 Secondary malignant neoplasm of bone Patient with stage IV \breast CA with widespread bony mets. Had chemo under Dr. Jolley's direction and was referred for ration therapy to the spine MRI of T-spine L-spine 02/03/2025 revealed pathological compression fracture T10- 11 T12 and L1. Bone mets involving most of the other vertebra including the C-spine but no sign of pathological fracture. Patient underwent left toilet mastectomy performed by Dr. Hunter. Patient will be seen 1 more time 04/22/2025. I have scheduled her for treatment on 04/23/2025 if she is cleared for radiation by the surgeon.. Electronically signed by: Robson Sarabia M.D. 04/09/2025 10:16 AM
== END 2025-04-29 23:59 | disposition home or self-care (01) ==
LOC: SCTC 10:36
PROVIDERS: PCP Family Medicine; Referring Provider Family Medicine; Visit Provider Radiology Therapeutic Radiology
DX: Z51.0 Encounter for antineoplastic radiation therapy (principal); C79.51 Secondary malignant neoplasm of bone; C50.412 Malignant neoplasm of upper-outer quadrant of left female breast; Z17.0 Estrogen receptor positive status [ER+]; Z17.22 Progesterone receptor negative status; Z17.32 Human epidermal growth factor receptor 2 negative status; R53.0 Neoplastic (malignant) related fatigue
CPT/HCPCS: 77014; 77290; 77295; 77300; 77332; 77334; 77336; 77385; 99211; G0463

== ENCOUNTER 2025-05-30 10:40 | Outpatient (RCR) | payer MEDICAID, SELFPAY ==
--- NOTE | 2025-05-05 15:08 | CTCSNOTE_ITS ---
[facility] [address] [place], [place] [address] Simple Simulation Note Date: 05/05/2025 MR#: [id number] Name: GALO DAVIS : 1970 Port was taken and the field size location and blocks were checked. (A) The port was noted to be in ideal position along with its blocks. Electronically signed by: Robson Sarabia MD, CHELIR 05/05/2025 3:05 PM
== END 2025-05-30 23:59 | disposition home or self-care (01) ==
LOC: SCTC 10:40
PROVIDERS: PCP Family Medicine; Referring Provider Family Medicine; Visit Provider Radiology Therapeutic Radiology
DX: Z51.0 Encounter for antineoplastic radiation therapy (principal); C50.412 Malignant neoplasm of upper-outer quadrant of left female breast; C79.51 Secondary malignant neoplasm of bone; Z17.0 Estrogen receptor positive status [ER+]; Z17.22 Progesterone receptor negative status; Z17.32 Human epidermal growth factor receptor 2 negative status; Z90.12 Acquired absence of left breast and nipple
CPT/HCPCS: 77280; 77336; 77412; 77417; 99211; G0463

== ENCOUNTER 2025-06-25 08:01 | Outpatient (RCR) | payer MEDICAID, SELFPAY ==
--- NOTE | 2025-06-02 11:12 | CTCTRTNOTE_ITS ---
[facility] [address] [place] [place], [place] [address] Weekly Management Date: 06/02/2025 ?? Name: GALOMARKO DAVIS D.O.B.: 1970 A. Patient is currently at 3780 cGy. B. Patient is tolerating treatment well. Mild erythema no significant desquamation of skin. C. Resume radiation therapy. Silvadene cream called in. Electronically signed by: Robson Sarabia M.D. 06/02/2025 11:10 AM
== END 2025-06-29 23:59 | disposition home or self-care (01) ==
LOC: SCTC 08:01
PROVIDERS: PCP Family Medicine; Referring Provider Family Medicine; Visit Provider Radiology Therapeutic Radiology
DX: Z51.0 Encounter for antineoplastic radiation therapy (principal); C50.412 Malignant neoplasm of upper-outer quadrant of left female breast; C79.51 Secondary malignant neoplasm of bone; Z17.0 Estrogen receptor positive status [ER+]; Z17.22 Progesterone receptor negative status; Z17.32 Human epidermal growth factor receptor 2 negative status
CPT/HCPCS: 77290; 77300; 77332; 77336; 77412; 77417

== ENCOUNTER → 2025-06-30 | Outpatient (CLI) | payer MEDICAID, SELFPAY ==
[2025-06-30 17:46] LABS: Basophils # (Auto) 0.0 Thou/mm3 (0.0-0.2); Basophils % (Auto) 1 % (0-2.5); Eosinophils # (Auto) 0.1 Thou/mm3 (0.0-0.5); Eosinophils % (Auto) 3 % (0-10); Hematocrit 31.0 % (36.0-46.0); Hemoglobin 10.1 g/dL (12.0-16.0); Immature Granulocytes Auto 0.01 Thou/mm3 (0.00-0.00); Lymphocytes # (Auto) 0.3 Thou/mm3 (1.0-4.8); Lymphocytes % (Auto) 15 % (10-50); Mean Corpuscular HGB Conc 32.6 g/dl (31.0-37.0); Mean Corpuscular Hemoglobin 32.3 pg (25.0-35.0); Mean Corpuscular Volume 99 fL (80-100); Monocytes # (Auto) 0.2 Thou/mm3 (0.0-0.8); Monocytes % (Auto) 12 % (0-12); Neutrophils # (Auto) 1.3 Thou/mm3 (1.8-7.7); Neutrophils % (Auto) 70 % (37-80); Nucleated Red Blood Cell # 0.00 Thou/mm3 (0.00-0.00); Nucleated Red Blood Cell % 0 /100 WBC (0); Platelet Count 192 Thou/mm3 (140-440); RDW Standard Deviation 63.7 fL (36.4-46.3); Red Blood Count 3.13 Miln/mm3 (4.00-5.20); White Blood Count 1.9 Thou/mm3 (3.6-11.0)
[2025-06-30 17:58] LABS: Alanine Aminotransferase 14 U/L (10-49); Albumin, Serum 4.7 gm/dL (3.5-5.0); Albumin/Globulin Ratio 2.4 (1.2-2.2); Alkaline Phosphatase 77 U/L (46-116); Anion Gap 8 (7-16); Aspartate Amino Transferase 24 U/L (0-34); BUN/Creatinine Ratio 20 Ratio (12-20); Bilirubin,Total 1.1 mg/dL (0.3-1.2); Blood Urea Nitrogen 12 mg/dL (9-23); Calcium 9.1 mg/dL (8.3-10.6); Calcium (Corrected) 9.1 mg/dL (8.5-10.1); Carbon Dioxide 27.3 mMol/L (20.0-31.0); Chloride 108 mMol/L (98-107); Creatinine (Component) 0.6 mg/dL (0.6-1.3); Globulin 2.0 gm/dL (2.3-3.5); Glucose 101 mg/dL (74-106); Osmolality,Calculated 284 (275-295); Potassium 4.0 mMol/L (3.4-5.1); Sodium 143 mMol/L (136-145); Total Protein 6.7 gm/dL (5.7-8.2); eGFR > 60 See Note
[2025-07-01 14:10] LABS: CA 15-3 272.6 U/mL (<32.4)
== END | disposition home or self-care (01) ==
PROVIDERS: PCP Family Medicine; Referring Provider Internal Medicine Hematology & Oncology; Visit Provider Internal Medicine Hematology & Oncology
DX: C50.412 Malignant neoplasm of upper-outer quadrant of left female breast (principal); C79.51 Secondary malignant neoplasm of bone
CPT/HCPCS: 36415; 80053; 85025; 86300

== ENCOUNTER 2025-07-21 08:30 | Outpatient (RCR) | payer MEDICAID, SELFPAY ==
--- NOTE | 2025-06-30 08:34 | CTCTRTNOTE_ITS ---
[facility] [address] [place], [place] [address] Weekly Management Date: 06/30/2025 ?? Name: GALOMARKO DAVIS D.O.B.: 1970 A. Patient is currently at 5040 cGy 720 BOOST B. Patient is tolerating treatment well. Skin fairly well-healed with rest C. . Completes XRT this . D. Resume radiation therapy. Electronically signed by: Robson Sarabia M.D. 06/30/2025 8:31 AM
== END 2025-07-30 23:59 | disposition home or self-care (01) ==
LOC: SCTC 08:30
PROVIDERS: PCP Family Medicine; Referring Provider Family Medicine; Visit Provider Radiology Therapeutic Radiology
DX: Z51.0 Encounter for antineoplastic radiation therapy (principal); C79.51 Secondary malignant neoplasm of bone; C50.412 Malignant neoplasm of upper-outer quadrant of left female breast; Z17.0 Estrogen receptor positive status [ER+]; Z17.22 Progesterone receptor negative status; Z17.32 Human epidermal growth factor receptor 2 negative status
CPT/HCPCS: 77336; 77412; 99212; G0463

== ENCOUNTER → 2025-07-28 | Outpatient (CLI) | payer MEDICAID, SELFPAY ==
[2025-07-28 08:40] LABS: Basophils # (Auto) 0.0 Thou/mm3 (0.0-0.2); Basophils % (Auto) 1 % (0-2.5); Eosinophils # (Auto) 0.1 Thou/mm3 (0.0-0.5); Eosinophils % (Auto) 5 % (0-10); Hematocrit 32.6 % (36.0-46.0); Hemoglobin 10.7 g/dL (12.0-16.0); Immature Granulocytes Auto 0.00 Thou/mm3 (0.00-0.00); Lymphocytes # (Auto) 0.4 Thou/mm3 (1.0-4.8); Lymphocytes % (Auto) 26 % (10-50); Mean Corpuscular HGB Conc 32.8 g/dl (31.0-37.0); Mean Corpuscular Hemoglobin 33.3 pg (25.0-35.0); Mean Corpuscular Volume 102 fL (80-100); Monocytes # (Auto) 0.2 Thou/mm3 (0.0-0.8); Monocytes % (Auto) 12 % (0-12); Neutrophils # (Auto) 0.8 Thou/mm3 (1.8-7.7); Neutrophils % (Auto) 56 % (37-80); Nucleated Red Blood Cell # 0.00 Thou/mm3 (0.00-0.00); Nucleated Red Blood Cell % 0 /100 WBC (0); Platelet Count 180 Thou/mm3 (140-440); RDW Standard Deviation 62.0 fL (36.4-46.3); Red Blood Count 3.21 Miln/mm3 (4.00-5.20)
[2025-07-28 08:46] LABS: White Blood Count 1.3 Thou/mm3 (3.6-11.0)
[2025-07-28 08:48] LABS: Alanine Aminotransferase 11 U/L (10-49); Albumin, Serum 4.5 gm/dL (3.5-5.0); Albumin/Globulin Ratio 2.0 (1.2-2.2); Alkaline Phosphatase 65 U/L (46-116); Anion Gap 8 (7-16); Aspartate Amino Transferase 22 U/L (0-34); BUN/Creatinine Ratio 21 Ratio (12-20); Bilirubin,Total 0.8 mg/dL (0.3-1.2); Blood Urea Nitrogen 15 mg/dL (9-23); Calcium 9.0 mg/dL (8.3-10.6); Calcium (Corrected) 9.0 mg/dL (8.5-10.1); Carbon Dioxide 27.9 mMol/L (20.0-31.0); Chloride 108 mMol/L (98-107); Creatinine (Component) 0.7 mg/dL (0.6-1.3); Globulin 2.2 gm/dL (2.3-3.5); Glucose 95 mg/dL (74-106); Osmolality,Calculated 287 (275-295); Potassium 4.6 mMol/L (3.4-5.1); Sodium 144 mMol/L (136-145); Total Protein 6.7 gm/dL (5.7-8.2); eGFR > 60 See Note
[2025-07-28 09:59] LABS: CA 15-3 225.8 U/mL (<32.4)
== END | disposition home or self-care (01) ==
LOC: COPL 07:12
PROVIDERS: PCP Family Medicine; Referring Provider Internal Medicine Hematology & Oncology; Visit Provider Internal Medicine Hematology & Oncology
DX: C50.412 Malignant neoplasm of upper-outer quadrant of left female breast (principal); C79.51 Secondary malignant neoplasm of bone
CPT/HCPCS: 36415; 80053; 85025; 86300